=== PATIENT | female | born 1955 | race Caucasian/White ===

== ENCOUNTER 2024-08-20 15:30 | Emergency (ER) | payer MEDICARE, OTHER, SELFPAY ==
[2024-08-20 15:30] VITALS: BMI 24.4
[2024-08-20 15:32] VITALS: BP 170/105
[2024-08-20 16:00] VITALS: BP 141/87
[2024-08-20 16:08] LABS: % Basophils 0.5 % (0-2); % Eosinophils 0.6 % (0-6); % Immature Granulocytes 0.4 % (0-0.5); % Neutrophils 92.5 % (42.2-75.2); Absolute Eosinophils 0.1 10^3/uL (0-0.7); Absolute Lymphocytes 0.3 10^3/uL (1.2-3.4); Absolute Monocytes 0.3 10^3/uL (0.1-0.6); Absolute Neutrophils 7.8 10^3/uL (1.4-6.5); Hematocrit 42.8 % (37.0-47.0); Hemoglobin 14.5 g/dL (12.0-16.0); Mean Corp Hgb Conc. 33.9 g/dL (33.0-37.0); Mean Corpuscular Hgb 31.8 pg (27.0-31.0); Mean Corpuscular Volume 93.9 fL (81.0-99.0); Mean Platelet Volume 9.9 fL (7.4-10.4); Nucleated Red Blood Cells % 0 %; Platelet Count 192 10^3/uL (130-400); Red Blood Cell Count 4.56 10^6/uL (4.20-5.40); Red Cell Dist. Width 13.3 % (11.5-14.5); White Blood Cell Count 8.5 10^3/uL (4.8-10.8)
[2024-08-20 16:10] LABS: Lactic Acid 1.5 mmol/L (0.7-2.0)
[2024-08-20 16:12] LABS: ALT (SGPT) 33 U/L (0-35); AST (SGOT) 46 U/L (14-36); Albumin 4.8 g/dl (3.5-5.0); Alkaline Phosphatase 70 U/L (38-126); Blood Urea Nitrogen 13 mg/dl (7-17); Carbon Dioxide 25 mmol/L (22-30); Chloride 103 mmol/L (98-107); Glucose 110 mg/dl (70-99); Potassium 4.4 mmol/L (3.5-5.1); Sodium 141 mmol/L (135-145); Total Bilirubin 1.3 mg/dl (0.2-1.3); Total Protein 7.1 g/dl (6.3-8.2); eGFR > 60.00
[2024-08-20 16:19] LABS: Urine Albumin Negative (Neg - Trace); Urine Bilirubin 1+ (Negative); Urine Character Clear (Clear); Urine Color Yellow; Urine Glucose Negative (Negative); Urine Ketone Negative (Negative); Urine Leukocyte Negative (Negative); Urine Nitrite Positive (Negative); Urine Occult Blood Negative (Negative); Urine Specific Gravity 1.025 (<1.030); Urine Urobilinogen 1+ (Neg - 1+)
[2024-08-20 16:50] LABS: Urine Bacteria Few (Negative); Urine Calcium Oxalate Crystals Present; Urine Red Blood Cell 0-2 /HPF (0-2); Urine Squamous Cell 21-25 /LPF (Few)
[2024-08-20 16:57] VITALS: BP 141/87
[2024-08-20 18:00] VITALS: BP 127/81
--- NOTE | 2024-08-20 18:14 | ED.GENMED ---
History of Present Illness
General
Chief Complaint: Urinary Symptoms
Source: patient
Exam Limitations: none
Time Seen by Provider: 08/20/24 17:04
Nursing documentation reviewed up to this point in time: agreed with
History of Present Illness
History of Present Illness:
69 yo female presents to the emergency department c/o flank pain, bladder fullness and groin fullness. Symptoms ongoing for 1-1/2 to 2 weeks. Initially she was on Keflex for dental infection, then clindamycin which gave her diarrhea. She then
developed a urinary tract and was given ciprofloxacin by urgent care.
Past History
Past History
ED Past Medical History: HTN and Other (Migraines, Lyme disease, endometriosis)
ED Past Surgical History: Gynecological (Endometriosis) and Other
Social History
Tobacco: Non-smoker
Alcohol: None
Drug: None
Review of Systems
Review of Systems
Allergies reviewed?: Yes
All Other Systems: Not applicable
Constitutional: Reports no symptoms
EENT: Reports no symptoms
Respiratory: Reports no symptoms
Cardiac: Reports no symptoms
ABD/GI: Reports diarrhea
: Reports flank pain and urgency
Musculoskeletal: Reports no symptoms
Skin: Reports no symptoms
Neurological: Reports no symptoms
Endocrine: Reports no symptoms
Hematologic/Lymphatic: Reports no symptoms
Psychiatric: Reports no symptoms
Phy Exam
Physical Exam
Physical Exam:
Physical Exam
General: no apparent distress, not acutely ill
Neck: supple. no meningeal signs. normal posterior pharynx
Heart: s1/s2 regular rate and rhythm, no murmur. equal radial
pulses.
HEENT: Pupils equal round reactive to light, EOMI
Lungs: no acute respiratory distress. clear bilaterally
Abdomen: normal bowel sounds. not tender. no CVAT
Neuro: alert and oriented. no focal neurological deficits cranial nerves II through XII intact
Skin: no rash
Psychiatric: well kept. interactive and cooperative
Extremities: no edema. no calf tenderness. negative homans. good distal pulses
Course
Orders/Labs/Results
Orders:
Orders
08/20/24 15:48
Complete Blood Count/With Diff Urgent
Comprehensive Metabolic Panel Urgent
Lactate Level [Lactic Acid] Urgent
Urinalysis Reflex To Culture Urgent
Date Specimen was Collected: 08/20/24
Time Specimen was Collected: 15:36
Urine Microscopic Reflex Cult Urgent
Urine Culture Urgent
JOSE A Source: U
Specimen Description:
Date Specimen was Collected: 08/20/24
Time Specimen was Collected: 15:36
08/20/24 18:12
CT Abd/pel Without Iv Or Oral Urgent
Comment:
Reason For Exam: bilateral flank pain, UTI
08/20/24 20:24
CefTRIAXone [Rocephin] 1,000 mg IV NOW STA
08/20/24 20:27
Acetaminophen [Tylenol] 650 mg PO NOW STA
Abnormal Lab Results
08/20/24
15:48
MCH 31.8 H pg
(27.0-31.0)
Absolute Neuts (auto) 7.8 H 10^3/uL
(1.4-6.5)
Absolute Lymphs (auto) 0.3 L 10^3/uL
(1.2-3.4)
Neutrophils % 92.5 H %
(42.2-75.2)
Lymphocytes % 3.0 L %
(20.5-51.1)
Glucose 110 H mg/dl
(70-99)
Calcium 11.0 H mg/dl
(8.4-10.2)
AST 46 H U/L
(14-36)
Urine Nitrite (Reflex) Positive A
(Negative)
Urine Bilirubin 1+ A
(Negative)
Urine Bacteria (Reflex) Few A
(Negative)
08/20/24 15:48
08/20/24 15:48
Vital Signs
Initial and Last Documented VS:
Initial Vital Signs
Temp Pulse Resp BP Pulse Ox
100.9 F H 75 18 170/105 93
08/20/24 15:32 08/20/24 15:32 08/20/24 15:32 08/20/24 15:32 08/20/24 15:32
Last Documented Vital Signs
Temp Pulse Resp BP Pulse Ox
100.9 F H 57 18 122/79 97
08/20/24 15:32 08/20/24 19:52 08/20/24 19:52 08/20/24 19:52 08/20/24 19:52
MDM/Problems Addressed
Differential Diagnosis Includes:
Pyelonephritis, kidney stone
MDM/Problems Addressed:
69-year-old female with UTI, mild fever. No acute findings on CT abdomen pelvis. Patient stable for discharge. She with Rocephin, Keflex.
Chronic conditions affecting care: HTN
Acute Exacerbation and/or Progression of Chronic Illness: HTN
*Radiology
Radiology exam reviewed: radiology read reviewed (CT abdomen pelvis no acute findings)
*Pulse Oximetry
Patient hypoxic: no
*Critical Care Note
Total Time (30-74mins, 75-104mins- exclusive of procedures): Not Applicable
Patient Management
Social determinants of health affecting care: Living situation and Strong social support
Escalation/DeEscalation of care consider admission/obs:
Admit not indicated
ED Attending Note
-
Portions of this chart may have been created with voice recognition software.� Occasional wrong word or��sound alike� substitutions may have occurred due to the inherent limitations of voice recognition software.
Discharge Plan
Departure
Patient Disposition: Home (Routine Discharge)
Date of Disposition: 08/20/24
Time of Disposition: 20:25
Patient with high blood pressure during this ER visit?: Yes
Condition: Good
Discharge Problem:
Urinary tract infection
Instructions: Urinary Tract Infection, Adult (DC), BLOOD PRESSURE
Prescriptions:
New
cephalexin 500 mg capsule
500 mg PO BID 10 Days Qty: 20 0RF
Referrals:
Hanh Alexander DO [Active] - Call in 1-3 days for appt
Wero Osborn DO [Family Provider] - Call in 1-3 days for appt
Interventions
Interventions:
*Risk Screen - Suicide Last Done: 08/20/24 15:32
*General Assessment Last Done: 08/20/24 15:32
*Neglect/Abuse Screening Last Done: 08/20/24 15:32
*ED COVID-19 Vaccine History Last Done: 08/20/24 15:32
ED-Female Genitourinary Assessment Last Done: 08/20/24 19:10
ED-Skin Assessment Last Done: 08/20/24 19:10
Discharge Date and Time
Print Language: [place]
[2024-08-20 19:52] VITALS: BP 122/79
[2024-08-20] MEDS: ROCEPHIN 1000 MG IV (20:32)
== END 2024-08-20 21:20 | disposition home or self-care (01) ==
LOC: EMR 15:30
PROVIDERS: EMERGENCY PHYSICIAN Emergency Medicine; FAMILY PHYSICIAN Family Medicine
DX: N39.0 Urinary tract infection, site not specified (principal); R19.7 Diarrhea, unspecified; R10.2 Pelvic and perineal pain; I10 Essential (primary) hypertension; G43.909 Migraine, unspecified, not intractable, without status migrainosus; N80.9 Endometriosis, unspecified; Z88.0 Allergy status to penicillin
CPT/HCPCS: 99284; 96374; 74176; 80053; 81003; 81015; 83605; 85025; 87086

== ENCOUNTER 2025-05-14 18:08 | Inpatient (IN) | payer MEDICARE, OTHER, SELFPAY ==
[2025-05-14] VITALS (24 sets, daily range): BP systolic 102–147; BP diastolic 82–111; BMI 23.6; BMI 22.1
[2025-05-14 13:40] LABS: % Basophils 1.2 % (0-2); % Eosinophils 0.9 % (0-6); % Immature Granulocytes 0.3 % (0-0.5); % Lymphocytes 16.4 % (20.5-51.1); % Monocytes 10.3 % (1.7-9.3); % Neutrophils 70.9 % (42.2-75.2); Absolute Basophils 0.1 10^3/uL (0-0.2); Absolute Eosinophils 0.1 10^3/uL (0-0.7); Absolute Monocytes 0.6 10^3/uL (0.1-0.6); Absolute Neutrophils 4.1 10^3/uL (1.4-6.5); Hematocrit 45.2 % (37.0-47.0); Hemoglobin 15.3 g/dL (12.0-16.0); Mean Corp Hgb Conc. 33.8 g/dL (33.0-37.0); Mean Corpuscular Hgb 31.2 pg (27.0-31.0); Mean Corpuscular Volume 92.2 fL (81.0-99.0); Nucleated Red Blood Cells % 0 %; Platelet Count 198 10^3/uL (130-400); Red Cell Dist. Width 12.9 % (11.5-14.5); White Blood Cell Count 5.8 10^3/uL (4.8-10.8)
[2025-05-14 13:54] LABS: ALT (SGPT) 15 U/L (0-35); AST (SGOT) 18 U/L (14-36); Albumin 4.8 g/dl (3.5-5.0); Alkaline Phosphatase 65 U/L (38-126); Blood Urea Nitrogen 14 mg/dl (7-17); Calcium 11.4 mg/dl (8.4-10.2); Carbon Dioxide 27 mmol/L (22-30); Chloride 107 mmol/L (98-107); Glucose 103 mg/dl (70-99); Potassium 4.5 mmol/L (3.5-5.1); Sodium 141 mmol/L (135-145); Total Bilirubin 1.2 mg/dl (0.2-1.3); Total Protein 7.5 g/dl (6.3-8.2); eGFR > 60.00
[2025-05-14 13:58] LABS: APTT 29.8 Sec (23.4-35.0)
[2025-05-14 14:56] LABS: Magnesium 1.9 mg/dl (1.6-2.3)
--- NOTE | 2025-05-14 15:16 | ED.GENMED ---
History of Present Illness
General
Chief Complaint: Heart Rate Problem
Source: patient
Time Seen by Provider: 05/14/25 14:18
Nursing documentation reviewed up to this point in time: agreed with
History of Present Illness
History of Present Illness:
Note:
CHIEF COMPLAINT(S)
Sore throat and abnormal heart rhythm.
HISTORY OF PRESENT ILLNESS
The patient is a 71-year-old male presenting with a recent history of a sore throat and an abnormal heart rhythm. The patient reported a sore throat with a white patch on the tonsil, ear pain, swollen glands, and sinus discomfort. Due to these
symptoms, the patient visited a primary care provider who, upon examination, performed an EKG showing atrial fibrillation/flutter and advised immediate hospital evaluation. The patient denies fever but reports a new onset cough for two days. The
patient mentions chronic cough inaccurately. The patient denies chest pain. The patient has a history of hypertension, currently managed with bisoprolol. The patient consumes alcohol occasionally.
PHYSICAL EXAM
- Nursing notes reviewed and vital signs reviewed: Afebrile, blood pressure 147/111, oxygen saturation 97% on room air.
- Head, Eyes, Ears, Nose, and Throat: Normocephalic, atraumatic, pupils equal, round, and reactive to light, no tonsillar edema or enlargement, tongue midline, moist oral mucosa, extraocular muscles intact.
- Cardiovascular: S1 and S2 normal, no S4, no murmurs, tachycardia, irregularly irregular rhythm.
- Pulmonary: Lungs clear bilaterally, no respiratory distress.
- Abdomen: Soft, non-distended, no rebound tenderness or guarding.
- Extremities: No edema, normal peripheral pulses.
- Neurologic: Cranial nerves II-XII intact.
PLAN
The plan includes starting the patient on diltiazem to slow the heart rate and potentially restore the regular rhythm. The patient will also be started on a blood thinner to prevent thromboembolic events associated with atrial fibrillation. Further
evaluation by cardiology is advised, including overnight hospitalization for monitoring and potentially an echocardiogram to assess for any cardiac thrombus. A chest X-ray will be performed to assess heart size and lung duran. COVID-19 and
influenza testing will be conducted to rule out concurrent infections.
DIFFERENTIAL DIAGNOSIS
The Differential Diagnosis includes, in no particular order and is not limited to:
1. Atrial fibrillation
2. Infective endocarditis
3. Upper respiratory tract infection
4. Viral pharyngitis
5. Streptococcal pharyngitis
6. Tonsillitis
7. Sinusitis
8. Oral candidiasis
9. Pulmonary embolism
10. Heart failure
EKG
My independent EKG interpretation is:
- Heart rate: 128 bpm
- Rhythm: Atrial flutter
- Block: Variable AV block
- [place]: Left axis deviation
- Intervals: Normal QRS duration and normal QT interval
- Abnormalities: Nonspecific ST and T wave abnormalities
CARE-UPDATE
05/14/25 - 17:11
Patient is tolerating diltiazem well, with improved heart rate control. Plan to admit for continued rate management and consider transesophageal echocardiogram (JOSE) and potential cardioversion. IV heparin therapy has been ordered to prevent
thromboembolic complications.
Disposition:
SUMMARY OF ENCOUNTER
The patient, a 71-year-old male, was seen in the emergency department due to a recent history of a sore throat and an abnormal heart rhythm identified as atrial flutter with variable AV block on EKG. The decision was made to admit the patient for
overnight monitoring and rate management, using an IV diltiazem drip to slow the heart rate and a heparin drip to prevent thromboembolic complications.
DISPOSITION
The patient was admitted for continued monitoring and management of atrial fibrillation.
MEDICATION RECONCILIATION
The patient was started on an IV diltiazem drip for heart rate control and heparin drip for thromboembolic prevention.
MEDICAL DECISION MAKING
1. Number & Complexity of Problems:
- Chronic conditions affecting care: Hypertension.
- Differential diagnoses considered include atrial fibrillation and viral or bacterial infections manifesting as a sore throat.
2. Data Reviewed:
- Ordered and reviewed EKG.
- Plan for further cardiology evaluation with potential echocardiogram.
3. Risk:
- Admission considered due to arrhythmia and potential risk of thromboembolic events.
- Management involves medication adjustments and close monitoring.
PATHOLOGIES TO CONSIDER
- Atrial fibrillation with risk of thromboembolic events.
- Infective endocarditis due to sore throat and arrhythmia.
- Pulmonary embolism due to dyspnea and arrhythmia.
Past History
Past History
ED Past Medical History: HTN and Other (Migraines, Lyme disease, endometriosis)
ED Past Surgical History: Gynecological (Endometriosis) and Other
Social History
Tobacco: Non-smoker
Alcohol: None
Drug: None
Phy Exam
Physical Exam
Physical Exam:
.
Course
Orders/Labs/Results
Orders:
Orders
05/14/25 13:13
Electrocardiogram (*1) Urgent
Reason for Study: Atrial Fibrillation
EKG- Treatment ONCE
05/14/25 13:31
Complete Blood Count/With Diff Urgent
Comprehensive Metabolic Panel Urgent
Magnesium Urgent
PTT Urgent
TSH Urgent
Comment: ADD ON
05/14/25 14:18
Add On- LAB Urgent
Tests Added?: mag/tsh
Troponin I Urgent
05/14/25 15:13
Diltiazem 125 mg/125 ml Nss [Cardizem] 125 mg in 125 ml IV NOW
Initial dose in mg/hr, then titrate:: 5
Titrate to keep:: Heart rate 80-100 bpm
Titrate by mg/hr:: 5 mg/hr
Frequency of titrations (minutes):: 15
Maximum dose in mg/hr:: 15
Diltiazem HCl [Cardizem] 5 mg IV NOW STA
05/14/25 15:15
CR Chest - 2 Views Urgent
Comment:
Reason For Exam: cough
05/14/25 17:06
PTT Urgent
Comment: Obtain baseline before beginning heparin infusion if not already collected
Heparin 3,500 units IV NOW STA
Pharmacy Request to Place See Dose Instructions PO NOW STA
Discontinue all Active Warfarin orders?: Yes
Nursing to Place Non Medication Order As Directed
Physician Order: PTT 6 hours after initial start of Heparin infusion
05/14/25 17:15
Heparin [id number] Units/250 ml 25,000 units in 250 ml IV PER PROTOCOL
Weight to be used for heparin protocol in kilograms (kg):: 58.5
Protocol:: Cardiac Tx/Acute Coronary
PTT Goal Range to be used:: PTT 73 to 111 seconds
Order type:: Initial
INITIAL Infusion Dose (UNITS/KG/hr) & then follow protocol:: 12 units/kg/hr
Infusion Dose in UNITS/hr & then follow protocol (UNITS/hr):: 700
INFUSION RATE in mL/hr & then follow protocol (mL/hr):: 7
PTT less than or equal to 64 seconds:: Increase rate by 200 units/hr (+ 2 mL/hr)
PTT 64.1 to 72.9 seconds:: Increase rate by 100 units/hr (+ 1 mL/hr)
PTT 73 to 111 seconds:: Target Range. No change in rate.
PTT 111.1 to 130.9 seconds:: Decrease rate by 100 units/hr (- 1 mL/hr)
PTT 131 to 199.9 seconds:: HOLD for 1 hr. Then decrease rate by 200 units/hr (- 2 mL/hr)
PTT greater than or equal to 200 seconds:: HOLD for 2 hrs & Notify Provider. Then decrease by 200 units/hr (-
2 mL/hr)
Lab follow-up:: Each change, PTT q6h until 2 consecutive are therapeutic. Then PTT
daily.
05/14/25 18:[address] See Dose Instructions IV DIRECTED
Abnormal Lab Results
05/14/25
13:31
MCH 31.2 H pg
(27.0-31.0)
Absolute Lymphs (auto) 1.0 L 10^3/uL
(1.2-3.4)
Lymphocytes % 16.4 L %
(20.5-51.1)
Monocytes % 10.3 H %
(1.7-9.3)
Glucose 103 H mg/dl
(70-99)
Calcium 11.4 H mg/dl
(8.4-10.2)
05/14/25 13:31
05/14/25 13:31
Vital Signs
Initial and Last Documented VS:
Initial Vital Signs
Temp Pulse Resp BP Pulse Ox
99.5 F 125 16 147/111 97
05/14/25 13:21 05/14/25 13:21 05/14/25 13:21 05/14/25 13:21 05/14/25 13:21
Last Documented Vital Signs
Temp Pulse Resp BP Pulse Ox
99.5 F 110 25 135/105 96
05/14/25 13:21 05/14/25 16:15 05/14/25 16:15 05/14/25 16:15 05/14/25 16:15
*Pulse Oximetry
SaO2: 97
Oxygen Mode of Delivery: Room air
Patient hypoxic: no
*Critical Care Note
Total Time (30-74mins, 75-104mins- exclusive of procedures): 35
comment:
Critical care statement: A total of 35 minutes of critical care time was provided for this patient. This includes management of unstable vital signs, evaluation of the patient at bedside, reviewing the patient's pertinent medical records, discussion
with consultants, review of old EKGs and review of pertinent medical records. This time with separate from time utilized to perform the aforementioned documented procedures
ED Attending Note
-
Portions of this chart may have been created with voice recognition software.� Occasional wrong word or��sound alike� substitutions may have occurred due to the inherent limitations of voice recognition software.
Discharge Plan
Departure
Patient Disposition: Admit
Date of Disposition: 05/14/25
Time of Disposition: 17:08
Admit to: IVU
Presentation/result/management discussed w/ accepting MD/DO: Hospitalist
Patient with high blood pressure during this ER visit?: Yes
Condition: Fair
Discharge Problem:
Atrial fibrillation with rapid ventricular response
Prescriptions:
No Action
zolmitriptan 5 mg Tablet,Disintegrating
0 mg PO .COMPLEX
Rx Instructions:
take 1 tab at onset of headache; if no relief, may repeat 1 tab after at least 2 hrs; max = 2 tabs/24 hrs
nebivolol 2.5 mg Tablet
2.5 mg PO DAILY
Referrals:
Wero Osborn DO [Family Provider, Family Practice]
Interventions
Interventions:
*Risk Screen - Suicide Last Done: 05/14/25 13:56
*General Assessment Last Done: 05/14/25 13:56
*Neglect/Abuse Screening Last Done: 05/14/25 13:56
*ED- Fall Risk Assessment Last Done: 05/14/25 13:56
*ED COVID-19 Vaccine History Last Done: 05/14/25 13:56
ED- Cardiac Assessment Last Done: 05/14/25 13:56
ED- Pulmonary Assessment Last Done: 05/14/25 13:56
Discharge Date and Time
Print Language: [place]
[2025-05-14] MEDS: CARDIZEM 125 IV (15:32)
[2025-05-14] MEDS: CARDIZEM 5 MG IV (15:33)
[2025-05-14 15:55] LABS: TSH 0.79 uIU/ml (0.47-4.68)
--- NOTE | 2025-05-14 17:09 | HPS.HSE ---
Family Physician
-
Family Physician: Wero Osborn
Chief Complaint
-
palpitations
History of Present Illness
Ms. Whit Islas is a 70 yo woman with hx essential hypertension, migraines sent to PCP office for new afib.
Patient went to her PCP for complaint of sore throat and left face fullness that reminded her of prior sinus infections. Symptoms started 2 days ago. No fevers.
PCP found patient to be tachycardic with EKG showing afib. She was sent to the ER. Patient denies palpitations. No prior history of afib. No nausea/vomiting. No diarrhea. Appetite OK. No chest pain. No LE swelling.
Medical History
Past Medical History
Past Medical History: Reports Other (Essential Hypertension, Migraines )
Past Surgical History: Reports Other
Social History
Tobacco: Non-smoker
Alcohol: Occasional
Family History
Family History: Not pertinent
Allergies / Home Medications
Allergies reflects when Allergies were last updated in [facility].
Home Medications with original date entered in [facility]
Allergy/Medication List:
Allergies
Allergy/AdvReac Type Severity Reaction Status Date / Time
penicillin V (From Pen-Vee K) Allergy Unknown Verified 11/23/20 18:01
Home Medications
nebivolol 2.5 mg tablet 2.5 mg PO DAILY 05/14/25
zolmitriptan 5 mg disintegrating tablet 0 mg PO .COMPLEX 05/14/25
Review of Systems
-
History Source: Patient
A 12 point ROS was completed and negative except as noted: Yes
Physical Exam
Vital Signs
Vital Signs
Temp Pulse Resp BP Pulse Ox
99.5 F 110 25 135/105 96
05/14/25 13:21 05/14/25 16:15 05/14/25 16:15 05/14/25 16:15 05/14/25 16:15
Physical Exam
General: No Apparent Distress
HEENT: PERRLA and Other (throat erythematous without exudate, no significant lymphadenopathy, no maxillary sinus pressure )
Respiratory: Clear; No Wheezes
Cardiac: S1/S2 and Irregular Rhythm
GI: Soft and Non Tender
Musculoskeletal: No Edema
Skin: Warm and Dry; No Rash
Neuro: AO x 3
Psych: Calm
Laboratory Results
-
05/14/25 13:31
05/14/25 13:31
Laboratory Results
APTT 29.8 Sec (23.4-35.0) 05/14/25 13:31
Total Bilirubin 1.2 mg/dl (0.2-1.3) 05/14/25 13:31
AST 18 U/L (14-36) 05/14/25 13:31
ALT 15 U/L (0-35) 05/14/25 13:31
Alkaline Phosphatase 65 U/L (38-126) 05/14/25 13:31
Data Reviewed
-
Diagnostic Radiology: Report Reviewed by me
Lab Data: Labs Reviewed by me
Impression/Plan
-
Ms. Whit Islas is a 70 yo woman with hx essential hypertension, migraines sent to PCP office for new afib.
Triage VS: T 99.5, P 125, RR 16, BP 147/111, SpO2 97%
LABS: WBC 5.8, Hg 15.3, PLT 198, Na 141, K+ 4.5, Cl 107, CO2 27, Cr 0.7, Glucose 103, Ca 11.4, Mag 1.9, liver enzymes WNL
TSH 0.79
EKG: aflutter @ 128
Atrial Flutter, new diagnosis
-started on IV diltiazem in the ER
-admit to IVU
-CHADS2-Vasc score = 3
-patient initially very hesitant to start a blood thinner and we discussed risks and benefits. She is willing to start Eliquis now and understands even higher importance in taking if cardioversion pursued
-Eliquis 5mg PO BID, CM consult placed
-Cardiology consult
-NPO after MN for possible JOSE cardioversion
-TTE
-TSH WNL
URI likely viral
-patient states covid tested today and negative, will check flu
-hold off on antibiotics for now
-IVF x 1 L
Essential HTN
-CRYSTAL MOUNTER Nebivolol
DVT PPx Eliquis
DNR - discussed on admission
76 minutes spent on patient care
[2025-05-14 17:43] LABS: Troponin I 0.019 ng/ml
[2025-05-14] MEDS: ELIQUIS 5 MG PO (18:22)
[2025-05-14] MEDS: ANESTHETIC LOZENGE 1 LOZENGE PO (18:22)
[2025-05-14] MEDS: TESSALON PERLES 100 MG PO ×2 (18:22→22:57)
[2025-05-14] MEDS: MUCINEX 600 MG PO (20:57)
[2025-05-14] MEDS: NSS 1000 IV (20:57)
--- NOTE | 2025-05-14 23:14 | PTCARENOTE ---
received patient from ED via stretcher. Patient walked from stretcher to bed without issue. Patient in Afib on Cardizem gtt at 5. IV fluids running as well 100ml/hr. Patient did complain of pain at IV site, this RN assessed site, flushed great and
no infiltration. IV team called to assess site as well, site was redressed and patient said it felt better. Assessment and vital signs as charted. call de la cruz in reach.
[2025-05-15] VITALS (7 sets, daily range): BP systolic 101–141; BP diastolic 71–111; BMI 22.2
--- NOTE | 2025-05-15 03:32 | PTCARENOTE ---
patient refused morning lab work. Patient stating 'it is not necessary'.
[2025-05-15] MEDS: IMITREX 100 MG PO (03:36)
[2025-05-15] MEDS: MUCINEX 600 MG PO (08:12)
[2025-05-15] MEDS: ELIQUIS 5 MG PO (08:12)
[2025-05-15] MEDS: BYSTOLIC 2.5 MG PO (08:12)
--- NOTE | 2025-05-15 08:25 | CON.CAR ---
Addendum entered and electronically signed by Chon José MD 05/15/25 11:25:
I saw and examined the patient.
The Parlor Chaperone's note was reviewed and I agree with the note.
Comment: Briefly, 70-year-old woman who presented to her primary care physician's office for evaluation of URI symptoms and was found to have rapid heart rate. ECG there showed rapid atrial flutter and she was referred to [place] emergency
department for evaluation.
Tells me that she has been asymptomatic despite rapid HR
Remains in atrial flutter this morning. With diltiazem drip heart rates are much better controlled.
We discussed rate versus rhythm strategy and she prefers conservative approach
Plan to continue home Nebivolol. Add low-dose PO Cardizem for goal heart rate less than 110 bpm.
Reviewed that if she remains in atrial flutter at the time of outpatient follow-up we can arrange for direct-current cardioversion at that time.
CHADS2 Vasc of 3 for hypertension, age and sex -recommend Eliquis 5 mg twice daily for risk reduction of cardioembolic stroke
Check echo to evaluate for cardiomyopathy or significant valvular pathology
Tentative plan for discharge later today
Addendum entered and electronically signed by Dilcia Nash PA-C 05/15/25 10:53:
Patient refused labs this morning, I called the lab and able to add on the HgbA1c to her ER labs from yesterday. Patient is anxious for discharge and is asking for her echo as soon as possible so that she can go home.
Original Note:
Consultation
Consultation Request
Date/Time Consultation Requested: 05/14/2025 in 2023
Date/Time Consultation Performed: 05/15/2025 at 0856
Requesting Provider: Dr. Rollins
Performing Provider: Dr. José
Reason for Consultation: Newly diagnosed atrial flutter
Medical History
-
History of Present Illness:
Patient came to [facility] ER last night with atrial flutter seen at her PCP office and cardiology was consulted. Patient was seen in her PCP for URI symptoms including congestion and throat pain, but was not feeling like SOB and no palpitations or CP.
On auscultation at the PCP office patient was noted to have a rapid and irregular HR prompting ECG that showed atrial flutter and patient was referred to the ER. Patient denies any history of atrial arrhythmia. ECG in the ER was repeated and
showed atrial flutter. Patient was started on Eliquis and a Cardizem gtt at 5 mg/hr. Patient denies palpitations. No recent decrease in exercise tolerance. She drinks 2-3 nights a week and has 3 glasses of wine when she drinks. She does not snore.
PMH:
HTN
h/o endometriosis
Past Medical History
Past Medical History: Other (in HPI)
Past Surgical History: Gynecological (endometriosis surgery, details unknown)
Social History
Tobacco: Non-Smoker
Alcohol: Other (threee glasses of wine 2-3 times a week)
Drug: None
Personal: Partner
Employment: Not Employed
Family History
Family History: Cancer
Allergies / Home Medications
Allergy/AdvReac Type Severity Reaction Status Date / Time
penicillin V (From Pen-Vee K) Allergy Unknown Verified 11/23/20 18:01
�Medication �Instructions �Recorded �Confirmed �Type
nebivolol 2.5 mg tablet 2.5 mg PO DAILY Blood Pressure 05/14/25 05/14/25 History
zolmitriptan 5 mg disintegrating 0 mg PO .COMPLEX migraine 05/14/25 05/14/25 History
tablet
Review of Systems
-
History Source: Patient and Family (partner at bedside)
All other systems: Negative unless noted
Physical Exam
Vital Signs
Temp Pulse Resp BP Pulse Ox
98.5 F 87 17 112/78 94
05/15/25 07:44 05/15/25 03:00 05/15/25 03:00 05/15/25 02:00 05/15/25 03:00
GEN: NAD. AAOx3
HEENT: EOMI, MMM
LUNGS: RA. CTA B/L, no wheeze
CV: Atrial flutter on tele. Irreg irreg, S1/S2, no murmur
ABD: soft, BS+, NT, ND
EXT: No clubbing, cyanosis, lesions or edema B/L
NEURO: Gross non-focal
SKIN: No rash
Lab Results
Troponin I 0.019 ng/ml 05/14/25 17:08
Impression / Plan
-
PCP: Dr. Osborn
Card: None prior to admission
Impression:
Admitted with newly diagnosed atrial flutter 05/14/2025
Newly diagnosed typical atrial flutter of unclear duration
HTN
h/o endometriosis
Hyperglycemia
Echo 05/15/25: Study pending
Plan:
-Patient came to [facility] ER last night with atrial flutter seen at her PCP office and cardiology was consulted. Patient was seen in her PCP for URI symptoms including congestion and throat pain, but was not feeling like SOB and no palpitations or CP.
On auscultation at the PCP office patient was noted to have a rapid and irregular HR prompting ECG that showed atrial flutter and patient was referred to the ER. Patient denies any history of atrial arrhythmia. ECG in the ER was repeated and
showed atrial flutter. Patient was started on Eliquis and a Cardizem gtt at 5 mg/hr. Patient denies palpitations. No recent decrease in exercise tolerance. She drinks 2-3 nights a week and has 3 glasses of wine when she drinks. She does not snore.
-ECG reviewed by me is atrial flutter, shuttlecock assembler reviewed by me. Also looks like atrial flutter
-Patient with newly diagnosed asymptomatic typical atrial flutter of unclear duration. Reviewed with patient and her partner at the bedside the pathophysiology of atrial arrhythmias. We also discussed rate control versus rhythm control. Patient
is not interested in JOSE/CV after our discussion and would prefer rate control and the possibility of cardioversion as an outpatient if she fails to convert on her own.
-Outpatient dose of Nebivolol 2.5 mg daily for history of HTN has been continued. Patient is also on Cardizem gtt running at 10 mg/hr. will transition to Cardizem CD 120 mg daily, orders placed by me.
-Patient was started on Eliquis 5 mg BID (age 70, Cre 0.7) last night. [id number] score is 3 and long-term OAC has been recommended. Patient is agreeable to OAC, but has no prescription drug coverage. Patient will use the 30-day free Eliquis
coupon card and in the meantime I have sent a task through [employer] to the cardiology office to work on patient prescription assistance paperwork. Reviewed with patient that if she does not qualify for patient prescription assistance that the
alternative would be warfarin which she says she would not do, but also cannot afford the [id number] cost for Eliquis.
-We discussed possible long-term rhythm control measures including AAD or ablation, but we discussed this in broad terms and patient is not immediately interested as she is otherwise asymptomatic.
-Patient denies snoring, partner confirms. BMI is 22. Would still consider outpatient PERLA evaluation.
-Advised patient to decrease alcohol intake, she drinks 3 glasses of wine 2-3 nights a week.
-Hyperglycemia noted since admission, will check HgbA1c, ordered by me.
-TSH normal at 0.79
-Echo ordered and report pending
-Pending echo patient can be discharged to home with outpatient cardiology follow-up.
--- NOTE | 2025-05-15 08:31 | W.CHA2DS2VAS ---
[id number] Score
Score
Age in Years (65=0, 65-74=1, >/=75=2): 65-74
Sex (Female=+1): Female
Congestive Heart Failure History (Yes=+1): No
Hypertension History (Yes=+1): Yes
Stroke/TIA/Thromboembolism History (Yes=+2): No
Vascular Disease History (Yes=+1): No
Diabetes Mellitus (Yes=+1): No
Score >/=2 is otherwise an anticoagulation candidate: 3
[2025-05-15] MEDS: CARDIZEM CD 120 MG PO (10:46)
--- NOTE | 2025-05-15 13:38 | CM ---
Patient with Dx new Atrial Flutter, URI likely viral. Plan echo today. Room air. Per nurse; A/O.
Met with patient who resides with her SO Matt in a 2 story house with 6 ADIA, with bedrooms on both first & 2nd floors.
The patient was independent in ADLs and ambulation.
She has no DME, no prior VN or SNF.
PCP - Wero Osborn
Pharmacy - [facility]
CM Consult:
Foss check Eliquis 5mg BID
Spoke with pharmacist, [facility]; patient has no prescription plan with her Medicare/no Part D, and cost is $503.70 with discount card that they can supply. Per pharmacy, Free Month Eliquis card will not work without insurance.
Provided info to patient of cost with discount card at pharmacy. Patient aware that cardiology office is working on patient assistance program for her Eliquis.
Confirmed with Dilcia Nash, cardiology office is working on patient prescription assistance paperwork for Eliquis.
Plan home.
--- NOTE | 2025-05-15 15:34 | W.PN.UPDATE ---
Update Note
Progress Note Update
Updated patient in her room with the results of echo. We reviewed plan for outpatient visit and ECG and that if she remains in A-fib can proceed with straight cardioversion in 3 weeks. We again reviewed using the 30-day free card for her initial
Eliquis prescription and that in the meantime the cardiology office is working on patient prescription assistance paperwork. I already E scribed the prescriptions for Cardizem CD and Eliquis to patient's pharmacy and made cardiology follow-up
visits and all of this was added to her discharge packet.
--- NOTE | 2025-05-15 16:13 | W.PN.HOSP.TC ---
Addendum entered and electronically signed by Raul Rollins MD 05/15/25 16:30:
call placed and discussed with Dr. Pratt, he feels that pt is in Atrial Flutter and not A. Fib
Original Note:
Today's Communication/Plan
-
dc to home
Assessment / Plan
Assessment / Plan
Ms. Whit Islas is a 70 yo woman with hx essential hypertension, migraines sent from PCP office for new afib.
Triage VS: T 99.5, P 125, RR 16, BP 147/111, SpO2 97%
LABS: WBC 5.8, Hg 15.3, PLT 198, Na 141, K+ 4.5, Cl 107, CO2 27, Cr 0.7, Glucose 103, Ca 11.4, Mag 1.9, liver enzymes WNL
TSH 0.79
EKG: aflutter @ 128
Atrial Flutter, new diagnosis
-started on IV diltiazem in the ER
has been changed over to oral diltiazem
-admit to IVU
-CHADS2-Vasc score = 3
-patient initially very hesitant to start a blood thinner and we discussed risks and benefits. She is willing to start Eliquis now and understands even higher importance in taking if cardioversion pursued
-Eliquis 5mg PO BID, CM consult placed
-Cardiology consult:
Echo: Normal left ventricular size. Low normal left ventricular systolic function. No
regional wall motion abnormalities are seen. LV ejection fraction is 50% by
visual estimate. Mild concentric left ventricular hypertrophy. Diastolic
function indeterminate due to atrial fibrillation.
Normal right ventricular size. Normal right ventricular systolic function.
Mild to moderate mitral regurgitation.
Mild to moderate aortic regurgitation.
Moderate tricuspid regurgitation. Estimated pulmonary artery pressure of 20-25
mmHg. Assuming a right atrial pressure of 3 mmHg.
-TSH WNL
URI likely viral
-patient states covid tested today and negative, neg flu
-hold off on antibiotics for now
-IVF x 1 L given
Essential HTN
-VAT WASHER Nebivolol
DVT PPx Eliquis
DNR - discussed on admission
will dc now, cleared by cardio to dc
see dictated note
Anticipated Discharge: Today
Subjective/Interval History
-
Date of Service: May 15, 2025
Anxiously awaiting discharge
Objective Data
-
Labs:
Laboratory Results
05/15/25
06:00
WBC Pending
Hgb Pending
Hct Pending
Plt Count Pending
Sodium Cancelled
Potassium Cancelled
Chloride Cancelled
Carbon Dioxide Cancelled
BUN Cancelled
Creatinine Cancelled
Glucose Cancelled
Calcium Cancelled
Vital Signs:
Vital Signs
Temp Pulse Resp BP Pulse Ox
99.0 F 104 24 121/93 97
05/15/25 15:38 05/15/25 09:00 05/15/25 09:00 05/15/25 08:18 05/15/25 09:41
Review of Systems
-
History Source: Patient, Physician (Dr. Pratt) and Coordinated Provider
Constitutional: Denies Fever
EENT: Reports No Symptoms Reported
Respiratory: Reports No Symptoms; Denies Cough or Trouble Breathing
Cardiac: Reports No Symptoms
Abdomen/GI: Reports No Symptoms
Genitourinary: Reports No Symptoms
Neuro: Reports No Symptoms
Physical Exam
-
General: Well Developed, Well Nourished and No Apparent Distress
HEENT: Normocephalic, Atraumatic and Moist Mucous Membranes
Respiratory: Clear to Auscultation; Negative Wheezes, Rales or Rhonchi
Cardiac: S1/S2 and Irregular Rhythm
GI: Soft, Nontender and Nondistended
Musculoskeletal: No Clubbing, No Cyanosis and No Edema
Neuro: Awake, Alert and Oriented
--- NOTE | 2025-05-15 16:36 | W.DS.TRANS ---
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
-
Discharge Instructions:
Discharge Diagnosis/Procedures Atrial Flutter
Diet Regular
Activity No strenuous activity
Driving Restrictions Not until seen by your Dr
Bathing Restrictions None
Instructions:
Stand-Alone Forms:
Changes to Home Medications: Yes
Discharge Medications:
DC Medications w/original date entered in [email or web address]
nebivolol 2.5 mg tablet 2.5 mg PO DAILY Blood Pressure 05/14/25
zolmitriptan 5 mg disintegrating tablet 0 mg PO .COMPLEX migraine 05/14/25
apixaban 5 mg tablet (Eliquis) 5 mg PO BID Blood clot prevention/tx #60 tabs 05/15/25
diltiazem HCl 120 mg capsule,extended release 24 hr (Cardizem CD) 120 mg PO DAILY Arrhythmia #90 caps 05/15/25
Home Medication Changes
Cardizem and Eliquis added
Pending Results: Yes
Additional Pending Results:
PTH level
--- NOTE | 2025-05-15 17:55 | PTCARENOTE ---
pt discharged home. instructions reviewed iv removed. pt drove herself home/ discussed with Dr Rollins . stated pt ok to drive home and short distances but not long ( [place]
== END 2025-05-15 18:08 | disposition home or self-care (01) | DRG 310 ==
LOC: IMU 18:08
PROVIDERS: Emergency Medicine; Physician Assistant Medical; ADMITTING PHYSICIAN Student in an Organized Health Care Education/Training Program; ATTENDING PHYSICIAN Internal Medicine; EMERGENCY PHYSICIAN Emergency Medicine; FAMILY PHYSICIAN Family Medicine; OTHER PHYSICIAN Internal Medicine Cardiovascular Disease
DX: I48.3 Typical atrial flutter (principal); I10 Essential (primary) hypertension; I48.91 Unspecified atrial fibrillation; Z53.20 Procedure and treatment not carried out because of patient's decision for unspecified reasons; Z79.899 Other long term (current) drug therapy
CPT/HCPCS: 71046; 80053; 83735; 84443; 84484; 85025; 85730; 87502; 93005; 93306; 96374; 96376; 99291

== ENCOUNTER 2025-07-31 12:31 | Inpatient (IN) | payer MEDICARE, OTHER, SELFPAY ==
[2025-07-31] VITALS (13 sets, daily range): BP systolic 94–125; BP diastolic 68–104; BMI 23.6
--- NOTE | 2025-07-31 10:54 | ITS.CL.CARDI ---
Hammer Driver - Cardioversion
Cardioversion
Procedure Report:
Procedure: Direct current electrical cardioversion
Pre-operative diagnosis: Persistent atrial fibrillation
Post-operative diagnosis: Persistent atrial fibrillation status post DC cardioversion to sinus rhythm
Anesthesia: MAC
Attending Physician: Chon José MD
Procedure Description: The patient was brought to the electrophysiology laboratory in the fasting state. Adherence to anticoagulation regimen was confirmed. Informed consent was obtained from the patient prior to the start of the procedure.
Electrodes were placed on the patient and connected to an external defibrillator. Monitoring of blood pressure, ECG tracings, and pulse oximetry was initiated. The pads were applied to the patient in the anterior and posterior positions. The patient
was sedated by the anesthesiologist. 200, 250 and subsequent 360 joule biphasic synchronized shocks were delivered to the patient under MAC anesthesia. Sinus rhythm was successfully restored. The patient recovered uneventfully from MAC anesthesia.
There were no immediate post-procedure complications. The patient left the lab in good condition. The attending physician was present throughout the entire procedure.
Impression: Successful direct current cardioversion with congregation of sinus rhythm after 200, 250 and subsequent 360 joule biphasic synchronized shocks.
[2025-07-31] MEDS: LOPRESSOR 2.5 MG IV (11:49)
[2025-07-31] MEDS: TOPROL XL 25 MG PO (11:55)
--- NOTE | 2025-07-31 12:47 | W.PN.CARDCBS ---
Addendum entered and electronically signed by Chon José MD 07/31/25 15:10:
I saw and examined the patient.
The Checker Product Design's note was reviewed and I agree with the note.
Comment: Briefly, 70-year-old woman past medical history of atrial fibrillation/atrial flutter who presented for direct-current cardioversion earlier today
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
I engaged electrophysiology regarding this arrhythmia and the best strategy for treatment going forward. During our bedside evaluation patient developed significant sinus pause.
Plan is for admission to the IVU with close telemetry monitoring
External cardioverter/defibrillator pads in place
Start oral metoprolol and amiodarone for treatment of tachyarrhythmia
If she continues to have significant pauses will need to consider permanent pacemaker implant
Xarelto for risk reduction of cardioembolic stroke
Reviewed with patient and her son-in-law at bedside
Discussed with electrophysiology and nursing
Original Note:
Today's Communication / Plan
-
amiodarone 200mg BID
if continues with symptomatic conversion pauses, will need PPM placement
NPO for now
Impression / Plan
-
Primary Whale Trainer: Dr. José
Assessment:
Persistent atrial fibrillation
Typical atrial flutter
Chronic OAC with xarelto
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
HTN
Mild valvular heart disease
ECHO 05/15/25: EF 50%, mild concentric LVH, mild to moderate MR, mild to moderate AR, moderate TR, PAP 20 to 25 mmHg
Plan:
- Patient with persistent atrial fibrillation as well as history of typical atrial flutter who presented for elective outpatient cardioversion today. Cardioversion was successful, however she subsequently developed AVNRT with RVR. Patient was
given adenosine and had a conversion pause of approximately 8 seconds. She was then given atropine and converted back to AVNRT. Since then she has had several conversion pauses and continues to go in and out of AVNRT. She is symptomatic.
- As presently in sinus rhythm/sinus bradycardia, we will start amiodarone 200 mg p.o. twice daily and follow rhythm
- Hopefully if amiodarone works in maintaining sinus rhythm, patient will not have pauses and therefore can avoid pacemaker placement
- If continues with pauses, we did discuss indication for pacemaker. N.p.o. for now in case pacemaker would be urgently required
- Recent echo with results as above
- Discussed with nursing
- Discussed with patient and son at bedside
Progress Note - Whale Trainer
Subjective
Date of Service: July 31, 2025
did not feel afib. is symptomatic with pauses
Objective
Vital Signs and I&O:
Vital Signs
Pulse Resp BP Pulse Ox
138 16 132/92 100
07/31/25 11:55 07/31/25 12:39 07/31/25 11:55 07/31/25 12:39
Vital Signs
Pulse Resp BP Pulse Ox
138 16 132/92 100
07/31/25 11:55 07/31/25 12:39 07/31/25 11:55 07/31/25 12:39
Physical Exam
Physical Exam
GEN: No distress, awake, alert, oriented x3
HEENT: supple, anicteric, mmm, eomi
LUNGS: CTA B/L, no wheezes/rales
CV: Reg and tachy, S1/S2, 1/6 syst LSB
ABD: soft, BS+, NT/ND
EXT: No cyanosis, clubbing, edema
NEURO: Gross non-focal
SKIN: Warm, pink, dry. No rash
[2025-07-31 13:07] LABS: Hematocrit 41.9 % (37.0-47.0); Hemoglobin 13.9 g/dL (12.0-16.0); Mean Corp Hgb Conc. 33.2 g/dL (33.0-37.0); Mean Corpuscular Volume 94.2 fL (81.0-99.0); Nucleated Red Blood Cells % 0 %; Platelet Count 158 10^3/uL (130-400); Red Cell Dist. Width 13.8 % (11.5-14.5)
[2025-07-31] MEDS: PACERONE 200 MG PO ×2 (13:08→19:41)
[2025-07-31 13:30] LABS: ALT (SGPT) 17 U/L (0-35); AST (SGOT) 19 U/L (14-36); Albumin 4.1 g/dl (3.5-5.0); Alkaline Phosphatase 53 U/L (38-126); Blood Urea Nitrogen 13 mg/dl (7-17); Calcium 10.2 mg/dl (8.4-10.2); Carbon Dioxide 29 mmol/L (22-30); Chloride 108 mmol/L (98-107); Estimated Creatinine Clearance 56 ml/min; Glucose 98 mg/dl (70-99); Magnesium 1.8 mg/dl (1.6-2.3); Potassium 4.8 mmol/L (3.5-5.1); Sodium 140 mmol/L (135-145); Total Protein 6.4 g/dl (6.3-8.2); eGFR > 60.00
--- NOTE | 2025-07-31 13:30 | PTCARENOTE ---
Rec'd pt post CV. Pt flipping in and out of SVT 140s and SB 40-50s. Pt w/ multiple 5-7 second conversion pauses. Tele strips in chart. Pt symptomatic w/ pauses. Pt reports she 'feels like she is going to pass out.' Pt stays awake and alert during
pauses. Dr. Quick, Dr. Prtat, Marry Hayden PA aware. 200mg PO amio administered and ok to give per Dr. Pratt. See MAR. Pt remains NPO for possible PPM today. Currently in bed; call jono w/in reach.
--- NOTE | 2025-07-31 13:36 | W.PN.UPDATE ---
Update Note
Progress Note Update
Dr. José brought me to the holding area after the patient cardioverted from atrial fibrillation briefly into sinus rhythm and then went into short RP tachycardia 140 bpm with VA time less than 60 ms. Tachycardia initiates with APD's and
couplets and then the patient had a approximately 10-second postconversion pause in my presence associated with loss of consciousness briefly. Atropine was given 0.5 mg with improvement in sinus node function and 2.5 mg of IV metoprolol and 25 mg
of p.o. metoprolol were given for SVT suppression. While she has been on the floor she has had multiple 5 to 7-second postconversion pauses and we gave amiodarone 200 mg p.o. in addition to the prior medications as above. When she is in sinus she
has heart rates in the 40s to 50s and is hemodynamically stable. She tolerates the SVT relatively well. She does not give a history of SVT prior to her atrial fibrillation. When her atrial rates were rapid ejection fraction has been as low as 40%
although she has a normal ejection fraction on most recent echocardiogram.
I just met with the patient and discussed dual-chamber pacemaker implantation via the left deltopectoral groove. Discussed 1000 risk of LA stroke as well as a 1% risk of pneumothorax tamponade infection lead dislodgment or bleeding.
Alternative is observation and SVT suppression although I suspect metoprolol and/or amiodarone will worsen her postconversion pauses and as such I have left her on bedrest. I took time to answer all questions as well as discussion that we would
wait at least 3 months until ablation therapy for atrial fibrillation and AV duc reentry would be considered. I reviewed all available tracings and they appear to be atrial fibrillation or organized atrial fibrillation. Would consider in 3 to 6
months after pacemaker implantation and medication therapy ablation for A-fib and slow pathway modification.
She also was just cardioverted from persistent A-fib so we will have to minimize time that she is off of oral anticoagulation. Last dose of Xarelto was last evening and likely would only hold today and resume tomorrow.
--- NOTE | 2025-07-31 14:22 | CM ---
Reviewed chart. Met with Mrs. Islas to review discharge plans. She states prior to admission she resides with her significant other in a two story home with seven steps to enter. She states she has to go a up full flight of steps to get to
bedroom/full bathroom. She states she does not have a bathroom on the first floor. She states prior to admission she was independent with ambulation and adls. She states she does not have any DME in the home. She states she does not have a
prescription plan and uses [facility]. She states she has the [employer] Patient assistance Application for [employer] to see if she will qualify for their program. She states she was denied [employer] Patient Assistance Program. Medical
work-up in progress. The discharge plan is to return home with her significant other when medically stable.
--- NOTE | 2025-07-31 14:33 | PTCARENOTE ---
Pt has decided to give consent for PPM today. Dr. Quick and Catracho PA made aware. Pt added on to schedule. Remains NPO. CHG cloth wipes provided to chest.
--- NOTE | 2025-07-31 16:32 | ITS.CL.PACE ---
Logistics Planning Manager - Pacemaker Implant
Pacemaker Implant
Procedure Report:
Date of Procedure: 07/31/2025
Patient : 1955
Procedure: Pacemaker Implantation.
Indication: Post cardioversion for atrial fibrillation the patient had incessant short RP tachycardia 140 bpm with postconversion pauses up to 12 seconds which I witnessed associated with loss of consciousness. Attempts at suppression of
tachycardia with IV metoprolol, p.o. metoprolol, and p.o. amiodarone were unsuccessful with less arrhythmia burden but ongoing and continued 6 to 7-second pauses with near syncope. Presents for symptomatic tachybradycardia syndrome.
Implants:
Pulse Generator: Grid Mobile; Model# W1 DR 01; SN: [id number]
RA Lead: Medtronic; Model# 4574; SN: BBD [id number]
RV Lead: Medtronic; Model# 4074; SN: [id number]
Technique: A time out was performed. The procedure site was identified. The patient was anesthetized by the anesthesia service. Preoperative sedation was administered. The patient was prepped and draped in the usual fashion. Local anesthetic was
applied to the left prepectoral subcutaneous tissue. A 3 inch incision was made 2.5 inches below the left clavicle. A subcutaneous pocket was created with blunt and sharp dissection and hemostasis controlled with Bovie cautery. The left axillary
vein was accessed within the pocket without difficulty. Hemostasis was excellent. The leads were introduced with 7 Fr hemostatic peel away introducer sheaths. The ventricular lead was placed at the right ventricular apex. The atrial lead was placed
in the right atrial appendage. 10 volt pacing did not capture the diaphragm. The leads were secured to the pectoralis muscle and fascia. The leads were appropriately attached to the device. The pocket was irrigated with antibiotic solution. The
device and leads were placed in the pocket. The incision was closed in three layers with absorbable suture. The estimated blood loss was minimal. There were no complications.��
During short RP tachycardia for 20 ms we first measured the VA time with leads in the RV apex and the right atrial appendage. VA time of 68 ms was noted but with the lead in the right atrial appendage I suspect if there was recording from the AV
node or near the AV node that the VA time would be less than 60 ms. We then performed ventricular overdrive pacing at 400 ms which reliably terminated the tachycardia favoring AV duc reentry as the mechanism. The patient also had spontaneous 3-4
beats of atrial tachycardia which initiated the patient sustained tachycardia further supporting initiation by APD's couplets and triplets into AV duc reentry tachycardia. We did give 2.5 mg of IV metoprolol intraoperatively which diminish the
burden of tachyarrhythmia and pacing in the atrium at 70 bpm did suppress tachycardia reliably.
Pulsed fluoroscopy 2.7 minutes and 5.22 mGy
Lead Analysis:
RA lead: P: 2.5 mV; Threshold: 0.4 V @ 0.5��ms; Impedance: 722 ohms.
RV lead: R: 4.0 mV; Threshold: 0.4 V @ 0.5��ms; Impedance: 855 ohms.
Final Programming: AAIR�DDDR 70 to 130 bpm
�
Conclusion: Uncomplicated Medtronic pacemaker implant.
Recommendation: Routine post pacemaker care. She has sick sinus syndrome associated with greater than 10-second pauses and syncope. Now with pacing we can increase medication therapy for her AV duc reentry tachycardia as well as persistent
atrial fibrillation which in the past has had elevated rates and mild LV dysfunction. Initiating metoprolol and amiodarone and given recent cardioversion I want to resume her oriented coagulation as soon as possible so will resume Xarelto tomorrow
in the early afternoon as we typically would withhold on heparin for at least 24 hours anyway.
With regards to her long-term arrhythmia plan I discussed with patient that she will need the leads to healing for at least 3 months and to consider PVI plus slow pathway modification in 3 to 6 months. We would do that on uninterrupted oral
anticoagulation and we would withdraw amiodarone 1 to 2 weeks prior to ablation procedure. She is willing to follow-up with us to discuss this plan further down the line. Continue sling chest x-ray and device precautions.
[2025-07-31] MEDS: TYLENOL 650 MG PO (19:41)
[2025-07-31] MEDS: ANCEF 5 IV (21:44)
[2025-08-01] VITALS (9 sets, daily range): BP systolic 116–134; BP diastolic 79–108
[2025-08-01] MEDS: NON-FORMULARY ITEM 5 MG PO (00:15)
--- NOTE | 2025-08-01 03:08 | PTCARENOTE ---
Pt continues to have unsustained tachycardia, flipping back to A pacing. BP wnl. Pt asymptomatic. @ 0200 tachycardia persisted for 45 minutes. Pt sleeping, BP wnl. Loulou Baldwin notified. No new orders. Pt currently A paced hr 70.
[2025-08-01] MEDS: TYLENOL 650 MG PO ×3 (04:50→21:15)
[2025-08-01 05:41] LABS: Hematocrit 32.9 % (37.0-47.0); Hemoglobin 11.0 g/dL (12.0-16.0); Mean Corp Hgb Conc. 33.4 g/dL (33.0-37.0); Mean Corpuscular Volume 94.8 fL (81.0-99.0); Platelet Count 139 10^3/uL (130-400); Red Cell Dist. Width 13.9 % (11.5-14.5)
[2025-08-01] MEDS: FLUSH (NSS) 1 FLUSH IV (05:43)
[2025-08-01] MEDS: ANCEF 5 IV (05:48)
[2025-08-01 06:14] LABS: Blood Urea Nitrogen 8 mg/dl (7-17); Calcium 8.1 mg/dl (8.4-10.2); Carbon Dioxide 22 mmol/L (22-30); Chloride 116 mmol/L (98-107); Estimated Creatinine Clearance 65 ml/min; Glucose 74 mg/dl (70-99); Magnesium 1.4 mg/dl (1.6-2.3); Potassium 3.5 mmol/L (3.5-5.1); Sodium 141 mmol/L (135-145); eGFR > 60.00
[2025-08-01] MEDS: TOPROL XL 25 MG PO ×2 (08:17→11:00)
[2025-08-01] MEDS: PACERONE 200 MG PO ×2 (08:18→20:03)
[2025-08-01] MEDS: KCL 20 MEQ PO (10:01)
[2025-08-01] MEDS: MAGNESIUM SULFATE 50 IV (10:01)
--- NOTE | 2025-08-01 10:27 | CM ---
Reviewed chart. Met with Mrs. Islas to review discharge plans. She states she feel washed out and tired. Prior to admission she resides with her significant other in a two story home with seven steps to enter. She has to go a up full flight
of steps to get to bedroom/full bathroom. She does not have a bathroom on the first floor. She states prior to admission she was independent with ambulation and adls. She does not have any DME in the home. She does not have a prescription plan and
uses [facility]. Medical work-up in progress. The discharge plan is to return home with her significant other when medically stable.
--- NOTE | 2025-08-01 10:52 | W.PN.CARDCBS ---
Addendum entered and electronically signed by Chon José MD 08/01/25 11:38:
I saw and examined the patient.
The Cabana Attendant's note was reviewed and I agree with the note.
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
with conversion pauses concerning for tachybradycardia syndrome. She was admitted to the IVU for monitoring and plan was for addition of amiodarone to help maintain sinus rhythm. Unfortunately she continued to have symptomatic conversion pauses
and underwent permanent pacemaker implant 07/31/2025.
Overnight telemetry reviewed. Predominantly atrial paced rhythm with intermittent episodes of AVNRT. Of note she seems to be asymptomatic with this.
Increase metoprolol dose to 50 mg twice daily
Continue amiodarone 200 mg twice daily
Replete electrolytes
Follow on telemetry today. If AVNRT is better controlled through this afternoon I am okay with discharge later today. Patient is anxious to leave the hospital.
Outpatient follow-up has been arranged
Original Note:
Today's Communication / Plan
-
continue amio
increase toprol
xarelto to resume tonight
possible DC later today vs AM
OP EP follow up arranged to discuss ablation.
Impression / Plan
-
Primary Fancy Stitcher: Dr. José
Assessment:
Persistent atrial fibrillation
Typical atrial flutter
Chronic OAC with xarelto
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
s/p Medtronic PPM placement 07/31/25
HTN
Mild valvular heart disease
ECHO 05/15/25: EF 50%, mild concentric LVH, mild to moderate MR, mild to moderate AR, moderate TR, PAP 20 to 25 mmHg
Plan:
- Patient with persistent atrial fibrillation as well as history of typical atrial flutter who presented for elective outpatient cardioversion 07/31. Cardioversion was initially successful, however she subsequently developed AVNRT with RVR. Patient
was given adenosine and had a conversion pause of approximately 8 seconds. She was then given atropine and converted back to AVNRT. Then continued to have paroxysmal AVNRT with conversion pauses and was symptomatic.
- underwent Medtronic PPM placement 07/31/25
- reports pain and itching surrounding dressing post PPM. will give dose of benadryl. we discussed that dressing should remain on until wound check appt next week
- we discussed activity restrictions and limitations post PPM in detail
- on tele no further pauses noted however continues with paroxysms of avnrt. continue amiodarone 200mg BID and will increase toprol dose in attempt to reduce AVNRT burden.
- xarelto to resume tonight
- OP EP follow up arranged to discuss ablation of atrial arrhythmias - she is requesting Dr. Quick ONLY.
- ambulate
- replete K/mag
- possible DC later today vs in AM
- Discussed with nursing
Progress Note - Fancy Stitcher
Subjective
Date of Service: August 01, 2025
reports some post op pain and itching surrounding dressing
Objective
Labs:
08/01/25 04:46
08/01/25 04:46
Labs
Hgb 11.0 g/dL (12.0-16.0) L D 08/01/25 04:46
Hct 32.9 % (37.0-47.0) L 08/01/25 04:46
Plt Count 139 10^3/uL (130-400) 08/01/25 04:46
Sodium 141 mmol/L (135-145) 08/01/25 04:46
Potassium 3.5 mmol/L (3.5-5.1) D 08/01/25 04:46
BUN 8 mg/dl (7-17) 08/01/25 04:46
Creatinine 0.6 mg/dL (0.6-1.0) 08/01/25 04:46
Glucose 74 mg/dl (70-99) 08/01/25 04:46
Vital Signs and I&O:
Vital Signs
Temp Pulse Resp BP Pulse Ox
98.8 F 70 20 129/86 96
08/01/25 07:31 08/01/25 08:00 08/01/25 07:31 08/01/25 07:31 08/01/25 07:31
Vital Signs
Temp Pulse Resp BP Pulse Ox
98.8 F 70 20 129/86 96
08/01/25 07:31 08/01/25 08:00 08/01/25 07:31 08/01/25 07:31 08/01/25 07:31
Intake & Output
07/30/25 07/31/25 08/01/25 08/02/25
07:59 07:59 07:59 07:59
Intake Total 1480 / 1480
Balance 1480 / 1480
Physical Exam
Physical Exam
GEN: No distress, awake, alert, oriented x3
HEENT: supple, anicteric, mmm, eomi
LUNGS: CTA B/L, no wheezes/rales
CV: Reg, S1/S2, no murmur
ABD: soft, BS+, NT/ND
EXT: No cyanosis, clubbing, edema
NEURO: Gross non-focal
SKIN: Warm, pink, dry. L chest site with aquacel dressing c/d/i, no rashes appreciated.
[2025-08-01] MEDS: XARELTO 20 MG PO (17:03)
[2025-08-01] MEDS: ZYRTEC 10 MG PO (20:03)
[2025-08-01] MEDS: TOPROL XL 50 MG PO (20:08)
[2025-08-01] MEDS: BENADRYL 25 MG PO (21:37)
[2025-08-02 03:25] VITALS: BP 132/99
--- NOTE | 2025-08-02 03:27 | PTCARENOTE ---
Pt A paced on monitor, VSS. Pt had a few episodes of A-tach with HR 122-126BPM. Pt asymptomatic. Tylenol PRN given for left chest surgery site pain. Pt independent in the room. Call jono w/in reach.
[2025-08-02] MEDS: BENADRYL 25 MG PO (05:31)
[2025-08-02] MEDS: TYLENOL 650 MG PO (05:31)
--- NOTE | 2025-08-02 06:29 | W.PN.CARDCBS ---
Addendum entered and electronically signed by Betty Rice DO 08/02/25 10:55:
I saw and examined the patient.
The Educational Fundraising Director's note was reviewed and I agree with the note.
Comment: Patient was seen and examined. She is anxious for discharge and all questions were answered including activity restrictions and cardiac follow-up. Patient is reporting itching around pacemaker bandage; no identifiable rash
General: No acute distress, AAOX3
Neck: Negative JVD
Heart: Regular, Negative S3 positive S1/S2, Negative S4, No murmur. Pacemaker site intact.
Lungs: CTA b/l, negative wheezes/rales/rhonchi
Abd: Positive BS, NT/ND, neg rebound/rigidity/guarding
Ext: No edema
Neuro: nonfocal
Persistent atrial fibrillation, AVNRT with conversion pauses up to 8 seconds now status post Medtronic pacemaker 07/31/2025
- Stable overnight following pacemaker with no further tachyarrhythmia.
- Activity restrictions reviewed.
- Continue medical therapy including amiodarone 200 mg daily. She will also continue new Toprol XL 50 mg twice daily (Nebivolol discontinued).
- She will continue Xarelto 20 mg once daily.
-Pertinent labs this morning: Sodium 138, potassium 4.9, BUN/creatinine 9/0.7. Magnesium 1.9.
-Outpatient cardiac follow-up with EP arranged to discuss possible AVNRT/A-fib ablation.
Original Note:
Today's Communication / Plan
-
Likely discharge to home later today pending labs that I ordered for this morning to recheck potassium and magnesium
Patient has received almost 1 g of amiodarone load and will continue to load at home for the next month and then reduce to once daily thereafter
Cardiac medications E scribed by cardiology for continuity at discharge
Impression / Plan
-
PCP: Dr. Wero Osborn
Primary Furniture Stainer: Dr. José
Assessment:
Admitted following attempted CV 07/31/25
s/p CV for persistent Afib
200, 250 and then 360 J shock for nondenominational of SR
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
Conversion pauses up to 8 seconds 07/31/25
s/p Medtronic DC PPM 07/31/25
Persistent atrial fibrillation
Paroxysmal typical atrial flutter
Chronic OAC with Xarelto
HTN
Mild valvular heart disease
Hypokalemia
Hypomagnesemia
ECHO 05/15/25: EF 50%, mild concentric LVH, mild to moderate MR, mild to moderate AR, moderate TR, PAP 20 to 25 mmHg
Plan:
-Patient with persistent atrial fibrillation as well as history of typical atrial flutter who presented for elective outpatient CV 07/31/25. CV was initially successful following 3 shocks, however she subsequently developed AVNRT with RVR and was
given adenosine and had a conversion pause of approximately 8 seconds. She was then given atropine and converted back to AVNRT. Then continued to have symptomatic paroxysmal AVNRT with conversion pauses prompting PPM.
-Patient had PPM 07/31/25, no hematoma and minimal ecchymosis.
-Activity limitations plus limb and driving restrictions reviewed with patient.
-Tele reviewed by me 08/02/25 and patient continues with paroxysms of AVNRT, but no longer experiencing pauses. Patient seems to be asymptomatic with AVNRT.
-Cont loading with amiodarone 200 mg BID and patient has received 800 mg as of 08/02/25 AM
-ECG from 08/01/2025 was reviewed by me on 08/02/2025 and the QTc was 425 mL
-Outpatient dose of nebivolol was changed to Toprol XL 50 mg BID
-Patient requested Dr. Quick for EP and is scheduled to see him 09/03/25 to discuss possible ablation
-Potassium and magnesium supplemented on 08/01/2025, recheck labs on 08/02/2025 AM, ordered by me
-Anticipate discharge to home on 08/02/2025
Progress Note - Furniture Stainer
Subjective
Date of Service: August 02, 2025
Sleeping soundly, no reports of pain
Objective
Labs:
08/01/25 04:46
08/01/25 04:46
Labs
Hgb 11.0 g/dL (12.0-16.0) L D 08/01/25 04:46
Hct 32.9 % (37.0-47.0) L 08/01/25 04:46
Plt Count 139 10^3/uL (130-400) 08/01/25 04:46
Sodium 141 mmol/L (135-145) 08/01/25 04:46
Potassium 3.5 mmol/L (3.5-5.1) D 08/01/25 04:46
BUN 8 mg/dl (7-17) 08/01/25 04:46
Creatinine 0.6 mg/dL (0.6-1.0) 08/01/25 04:46
Glucose 74 mg/dl (70-99) 08/01/25 04:46
Vital Signs and I&O:
Vital Signs
Temp Pulse Resp BP Pulse Ox
98.4 F 71 16 132/99 96
08/02/25 03:23 08/02/25 06:00 08/02/25 03:23 08/02/25 03:25 08/02/25 03:25
Vital Signs
Temp Pulse Resp BP Pulse Ox
98.4 F 71 16 132/99 96
08/02/25 03:23 08/02/25 06:00 08/02/25 03:23 08/02/25 03:25 08/02/25 03:25
Intake & Output
07/30/25 07/31/25 08/01/25 08/02/25
06:59 06:59 06:59 06:59
Intake Total 1480 / 1480 1250 / 1250
Balance 1480 / 1480 1250 / 1250
Physical Exam
Physical Exam
GEN: NAD.
LUNGS: RA. No wheeze
CV: A-paced rhythm on telemetry
EXT: No edema B/L
NEURO: Gross non-focal
SKIN: No rash
[2025-08-02 07:15] VITALS: BP 127/89
[2025-08-02 10:05] LABS: Blood Urea Nitrogen 9 mg/dl (7-17); Calcium 10.5 mg/dl (8.4-10.2); Carbon Dioxide 31 mmol/L (22-30); Chloride 105 mmol/L (98-107); Estimated Creatinine Clearance 56 ml/min; Glucose 93 mg/dl (70-99); Magnesium 1.9 mg/dl (1.6-2.3); Potassium 4.9 mmol/L (3.5-5.1); Sodium 138 mmol/L (135-145); eGFR > 60.00
[2025-08-02] MEDS: ZYRTEC 10 MG PO (10:37)
[2025-08-02] MEDS: TOPROL XL 50 MG PO (10:38)
[2025-08-02 10:40] VITALS: BP 142/94
[2025-08-02] MEDS: PACERONE 200 MG PO (10:40)
--- NOTE | 2025-08-02 10:57 | PTCARENOTE ---
Pt is AOx3, no complaints of pain or discomfort. Independent OOB. A-paced on tele monitor, VSS. Plan for discharge later this AM. Call de la cruz within reach.
--- NOTE | 2025-08-02 11:22 | W.DS.TRANS ---
DC Summary - Wood Preparation Supervisor
-
Discharge Instructions:
Discharge Diagnosis/Procedures Atrial tachycardia post Cardioversion
Symptomatic conversion pauses post pacemaker
implant
Diet Low Sodium
Activity Other activity
Additional Activity see device sheet
Driving Restrictions No driving for 1 week
Bathing Restrictions OK to Shower
Instructions:
Stand-Alone Forms: DC Inst - Implanted Device
Changes to Home Medications: Yes
Discharge Medications:
DC Medications w/original date entered in [facility]
cetirizine 10 mg tablet (Zyrtec) 10 mg PO DAILY 07/31/25
rivaroxaban 20 mg tablet (Xarelto) 20 mg PO QPM 07/31/25
zolmitriptan 5 mg tablet 5 mg PO ONCE migraine 07/31/25
amiodarone 200 mg tablet 200 mg PO DAILY #30 tabs 08/01/25
amiodarone 200 mg tablet (Pacerone) 200 mg PO BID #60 tabs 08/01/25
metoprolol succinate 25 mg tablet,extended release 24 hr 50 mg (2 x 25 mg) PO BID #60 tabs 08/01/25
Home Medication Changes
Nebivolol changed to Toprol XL
New to amiodarone
Pending Results: No
[2025-08-02 11:35] VITALS: BP 160/117
[2025-08-02 11:37] VITALS: BP 143/100
[2025-08-02 11:39] VITALS: BP 157/112
== END 2025-08-02 12:00 | disposition home or self-care (01) | DRG 243 ==
LOC: IVU 12:31
PROVIDERS: Internal Medicine Cardiovascular Disease; Physician Assistant; Physician Assistant Medical; ADMITTING PHYSICIAN Internal Medicine Cardiovascular Disease; FAMILY PHYSICIAN Family Medicine
PROC: 02H63JZ Insertion of Pacemaker Lead into Right Atrium, Percutaneous Approach (ICD-10-PCS; 2025-07-31)
PROC: 02HK3JZ Insertion of Pacemaker Lead into Right Ventricle, Percutaneous Approach (ICD-10-PCS; 2025-07-31)
PROC: 0JH606Z Insertion of Pacemaker, Dual Chamber into Chest Subcutaneous Tissue and Fascia, Open Approach (ICD-10-PCS; 2025-07-31)
PROC: 5A2204Z Restoration of Cardiac Rhythm, Single (ICD-10-PCS; 2025-07-31)
DX: I49.5 Sick sinus syndrome (principal); I47.19 Other supraventricular tachycardia; I48.19 Other persistent atrial fibrillation; I48.3 Typical atrial flutter; Z79.899 Other long term (current) drug therapy
CPT/HCPCS: 33208; 71045; 80048; 80053; 83735; 85025; 85027; 92960; 93005; C1785; C1898; Q9967

== ENCOUNTER 2025-08-11 19:32 | Emergency (ER) | payer MEDICARE, OTHER, SELFPAY ==
[2025-08-11 19:40] VITALS: BP 155/108
[2025-08-11 20:05] LABS: Hematocrit 44.4 % (37.0-47.0); Hemoglobin 14.7 g/dL (12.0-16.0); Mean Corp Hgb Conc. 33.1 g/dL (33.0-37.0); Mean Corpuscular Volume 91.0 fL (81.0-99.0); Nucleated Red Blood Cells % 0 %; Platelet Count 242 10^3/uL (130-400); Red Cell Dist. Width 13.2 % (11.5-14.5)
[2025-08-11 20:23] LABS: ALT (SGPT) 19 U/L (0-35); AST (SGOT) 23 U/L (14-36); Albumin 4.6 g/dl (3.5-5.0); Alkaline Phosphatase 69 U/L (38-126); Blood Urea Nitrogen 17 mg/dl (7-17); Calcium 11.0 mg/dl (8.4-10.2); Carbon Dioxide 32 mmol/L (22-30); Chloride 102 mmol/L (98-107); Glucose 138 mg/dl (70-99); Potassium 4.5 mmol/L (3.5-5.1); Sodium 137 mmol/L (135-145); Total Protein 7.3 g/dl (6.3-8.2); eGFR > 60.00
[2025-08-11 22:42] VITALS: BP 141/87
[2025-08-11 23:00] VITALS: BP 144/91
--- NOTE | 2025-08-11 23:17 | ED.GENMED ---
History of Present Illness
<Augusta Miller PA-C - Last Filed: 08/12/25 06:09>
General
Chief Complaint: Headache
Source: patient
Exam Limitations: none
Time Seen by Provider: 08/11/25 23:16
Nursing documentation reviewed up to this point in time: agreed with
History of Present Illness
History of Present Illness:
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 She
reports that the headache started after she had her pacemaker placed. She describes the pain as severe and across her forehead behind her eyes and extending to the back of her neck. She feels that her neck feels stiff. Despite being a chronic
migraine suffer, she states that this headache is distinct from her typical migraines as her usual migraines get better with medications however she cannot take her typical migraine medication as it interacts with her potential pacemaker function.
She reports not experiencing a migraine of this nature before with her typical migraines usually resolving within 2 hours after treatment. The headache is constant and worsened by light. She denies any recent headaches or falls. The patient
experiences associated symptoms of occasional dizziness. She denies chest pain, shortness of breath, lightheadedness, syncopal episodes. She did not take her Zomig as it may cause vaso constriction. She denies any fevers or chills. She denies
any recent head or neck trauma. She denies any numbness or tingling one-sided body versus other.
Past History
<Augusta Miller PA-C - Last Filed: 08/12/25 06:09>
Past History
ED Past Medical History: HTN and Other (Migraines, Lyme disease, endometriosis)
ED Past Surgical History: Gynecological (Endometriosis) and Other
Social History
Tobacco: Non-smoker
Alcohol: None
Drug: None
Review of Systems
<Augusta Miller PA-C - Last Filed: 08/12/25 06:09>
Review of Systems
All Other Systems: ROS reviewed and negative except as documented in HPI and ROS
Phy Exam
<Augusta Miller PA-C - Last Filed: 08/12/25 06:09>
Physical Exam
Physical Exam:
General: Patient is well appearing and in no acute distress; non-toxic
Skin: Warm and dry, no rashes or lesions
Head: Normocephalic, atraumatic
Eyes: Sclera non-icteric. EOMs intact.
Neck: Full range of motion, neck supple, no tenderness upon palpation
Cardiac: Regular rate and rhythm, no murmurs
Peripheral Vascular: No lower extremity swelling or edema
Pulm: Normal respiratory effort, no wheezes, rales, rhonchi
Neuro: CN II-XII intact, no focal neurologic deficits. Normal finger to you, heel to nose testing. No nuchal rigidity. Negative Kernig and Bruzinski sign.
Psychiatric: Appropriate mood and affect.
Course
<Augusta Miller PA-C - Last Filed: 08/12/25 06:09>
Orders/Labs/Results
Orders:
Orders
08/11/25 19:50
Complete Blood Count/With Diff Urgent
Comprehensive Metabolic Panel Urgent
08/11/25 23:20
Interrogate Pacemaker- Treatment ONCE
08/12/25
CT Head & Neck Angio W/wo IV Urgent
Reason For Exam: headache and neck pain x 11 days
08/12/25 01:49
Diphenhydramine [Benadryl] 12.5 mg IV NOW STA
Metoclopramide [Reglan] 10 mg IV NOW STA
08/12/25 01:50
0.9% Sodium Chloride 500 ml [Nss] 500 ml IV BOLUS
08/12/25 01:53
Ketorolac [Toradol] 15 mg IV NOW STA
08/12/25 02:47
Dexamethasone Sod Phosphate [Decadron] 10 mg IV NOW STA
08/12/25 02:48
Acetaminophen [Tylenol] 1,000 mg PO NOW STA
08/12/25 05:45
Dexamethasone [Decadron] 10 mg PO NOW STA
Abnormal Lab Results
08/11/25
19:50
Carbon Dioxide 32 H mmol/L
(22-30)
Glucose 138 H mg/dl
(70-99)
Calcium 11.0 H mg/dl
(8.4-10.2)
08/11/25 19:50
08/11/25 19:50
Vital Signs
Initial and Last Documented VS:
Initial Vital Signs
Temp Pulse Resp BP Pulse Ox
98.5 F 79 18 155/108 99
08/11/25 19:40 08/11/25 19:40 08/11/25 19:40 08/11/25 19:40 08/11/25 19:40
Last Documented Vital Signs
Temp Pulse Resp BP Pulse Ox
98.9 F 72 18 158/94 97
08/12/25 05:57 08/12/25 05:57 08/12/25 05:57 08/12/25 05:57 08/12/25 05:57
<Nolan Ramey MD - Last Filed: 08/12/25 19:18>
Orders/Labs/Results
Orders:
Orders
08/11/25 19:50
Complete Blood Count/With Diff Urgent
Comprehensive Metabolic Panel Urgent
08/11/25 23:20
Interrogate Pacemaker- Treatment ONCE
08/12/25
CT Head & Neck Angio W/wo IV Urgent
Reason For Exam: headache and neck pain x 11 days
08/12/25 01:49
Diphenhydramine [Benadryl] 12.5 mg IV NOW STA
Metoclopramide [Reglan] 10 mg IV NOW STA
08/12/25 01:50
0.9% Sodium Chloride 500 ml [Nss] 500 ml IV BOLUS
08/12/25 01:53
Ketorolac [Toradol] 15 mg IV NOW STA
08/12/25 02:47
Dexamethasone Sod Phosphate [Decadron] 10 mg IV NOW STA
08/12/25 02:48
Acetaminophen [Tylenol] 1,000 mg PO NOW STA
08/12/25 05:45
Dexamethasone [Decadron] 10 mg PO NOW STA
Abnormal Lab Results
08/11/25
19:50
Carbon Dioxide 32 H mmol/L
(22-30)
Glucose 138 H mg/dl
(70-99)
Calcium 11.0 H mg/dl
(8.4-10.2)
08/11/25 19:50
08/11/25 19:50
Vital Signs
Initial and Last Documented VS:
Initial Vital Signs
Temp Pulse Resp BP Pulse Ox
98.5 F 79 18 155/108 99
08/11/25 19:40 08/11/25 19:40 08/11/25 19:40 08/11/25 19:40 08/11/25 19:40
Last Documented Vital Signs
Temp Pulse Resp BP Pulse Ox
98.9 F 72 18 158/94 97
08/12/25 05:57 08/12/25 05:57 08/12/25 05:57 08/12/25 05:57 08/12/25 05:57
Kimlt;Augusta Miller PA-C - Last Filed: 08/12/25 06:09>
MDM/Problems Addressed
Differential Diagnosis Includes:
Differentials include acute migraine attack, status migrainous, viral meningitis, postviral syndrome, occipital neuralgia
MDM/Problems Addressed:
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 She
reports that the headache started after she had her pacemaker placed. Patient did have upper respiratory viral symptoms at that time. She reports that she can no longer take her migraine medication because of her heart condition and she currently
does not have a rescue or preventative medication. Patient was given Toradol, Reglan, Benadryl with relief of symptoms. Patient was given a dose of Decadron as well for refractory migraine. Labs reviewed, CBC, CMP unremarkable. Considering
patient's neck pain, headache, intermittent dizziness she was sent for CTA which showed no evidence of vessel dissection, no evidence of acute intracranial abnormality. Suspect status migrainous versus postviral syndrome. Low suspicion for
meningitis. No indication for LP at this time. Did contact Dr. Rodríguez, neurologist on-call who recommended variety of preventative medications. I did offer these to patient however patient opts for a as needed medication instead. Will initiate
Nurte. I did recommend that patient establish care with a neurologist and see her primary for reassessment patient expressed understanding. Patient stable for discharge
Chronic conditions affecting care:
htn, migraine
<Augusta Miller PA-C - Last Filed: 08/12/25 06:09>
*Pulse Oximetry
SaO2: 100
Oxygen Mode of Delivery: Room air
Patient hypoxic: no
*Critical Care Note
Total Time (30-74mins, 75-104mins- exclusive of procedures): Not Applicable
Data Reviewed
Review of Other/Old Records Reveals: Records (Reviewed discharge summary from 08/02/2025)
Source: patient and records
Further Testing Considered But Not Given:
No abnormalities on pacemaker evaluation today
<Augusta Miller PA-C - Last Filed: 08/12/25 06:09>
Update Note
Update Note:
12:18-- i was notified by nursing staff that patient refused ecg
ED Attending Note
<Augusta Miller PA-C - Last Filed: 08/12/25 06:09>
-
Portions of this chart may have been created with voice recognition software.� Occasional wrong word or��sound alike� substitutions may have occurred due to the inherent limitations of voice recognition software.
<Nolan Ramey MD - Last Filed: 08/12/25 19:18>
ED Attending Note
Patient seen and examined by attending physician: Yes
ED Attending Note:
Patient with history of 'vascular migraine headache', presents to ED secondary to persistent headache over the past 2 weeks. Patient states that her headache started on the day when she had her pacemaker placed in the hospital. Prior to the
pacemaker placement, patient states that she was experiencing nasal congestion and cough. However, as she did not experience fever, procedure was completed, as planned. Patient was in the hospital for 2 more days, during which time patient did
experience continual headache, for which she was given Tylenol, as well as Zomig with mild improvement. Since then, patient has been using Zomig on multiple occasions at home, without improvement. Headache which was started on the left side of her
head, has become more diffuse, as well as neck pain. Denies fever or chills. Denies nausea or vomiting. Denies difficulty with speech or swallowing. Denies blurred vision. Denies loss of sensation or weakness. Patient spoke with her primary
care physician who advised patient come to ED for an evaluation.
Physical Exam
General: no apparent distress, not acutely ill. afebrile
Head: nc/at. eomi
Neck: supple. normal range of motion. negative Kernig's and Brudzinski sign.
Heart: s1/s2 regular rate and rhythm
Lungs: no acute respiratory distress. clear bilaterally
Abdomen: normal bowel sounds. not tender.
Neuro: alert and oriented x 3. no focal neurological deficits. normal speech.
Skin: no rash
Psychiatric: well kept. interactive and cooperative
Extremities: no edema. no calf tenderness.
Patient with an unremarkable workup in ED, including blood work and CT angiogram of head and neck. Otherwise, patient remains afebrile, hemodynamically stable, and neurologically intact on observation, without acute distress. Patient with likely
worsening headache, likely viral in nature versus chemical reaction, i.e. anesthesia during pacemaker placement, and extremely less likely meningitis, as patient's exam is quite benign. As such, after discussion with patient and on-call neurology,
Dr. Rodríguez, patient will be discharged home in stable condition with recommendation for medication as outpatient, along with PCP follow-up.
Discharge Plan
Departure
Patient Disposition: Home (Routine Discharge)
Date of Disposition: 08/12/25
Time of Disposition: 05:53
Patient with high blood pressure during this ER visit?: Yes
Condition: Good
Discharge Problem:
Migraine with status migrainosus
Instructions: Migraines (DC), BLOOD PRESSURE
Prescriptions:
New
Nurtec ODT 75 mg tablet,disintegrating
75 mg PO ONCE PRN (Reason: migraine) Qty: 30 0RF
No Action
cetirizine [Zyrtec] 10 mg Tablet
10 mg PO DAILY
Xarelto 20 mg Tablet
20 mg PO QPM
zolmitriptan 5 mg Tablet
5 mg PO ONCE
amiodarone [Pacerone] 200 mg Tablet
200 mg PO BID Qty: 60 0RF
Rx Instructions:
take 200mg twice daily for 4 weeks then decrease to 200mg daily! FILL FIRST
metoprolol succinate 25 mg Tablet Extended Release 24 Hr
50 mg PO BID Qty: 60 5RF
amiodarone 200 mg tablet
200 mg PO DAILY Qty: 30 3RF
Rx Instructions:
Please take 200mg twice daily for 30 days then decrease to 200mg daily! FILL SECOND
Referrals:
Ilsa Jones MD [Non-Admitting Privileges, Psychiatry] - Call in 1-3 days for appt
Wero Osborn, DO [Family Provider, [facility]]
Activity Restrictions/Additional Instructions:
Nurtec has been sent to your pharmacy. This is used for acute migraine attacks. You can take 1 tablet as a single dose early in the course of a migraine attack at the first sign of pain. You cannot take more than 1 dose in 24 hours.
I recommend establishing care with a neurologist. You can call the attached number to schedule an appointment.
As discussed, your CT scan of the head and neck was normal. No evidence of vessel dissection or other acute abnormality.
PLEASE RETURN TO ER SHOULD YOU DEVELOP CHEST PAIN SHORTNESS OF BREATH, INTRACTABLE NAUSEA OR VOMITING, VISUAL CHANGES, FEVERS, WEAKNESS IN ONE-SIDED BODY VERSUS OTHER, NUMBNESS OR TINGLING, OR ANY OTHER SIGNS OR SYMPTOMS WORRISOME TO YOU.
Interventions
Interventions:
*Risk Screen - Suicide Last Done: 08/11/25 23:38
*General Assessment Last Done: 08/11/25 23:37
*Neglect/Abuse Screening Last Done: 08/11/25 23:39
*ED- Fall Risk Assessment Last Done: 08/11/25 23:37
*ED COVID-19 Vaccine History Last Done: 08/11/25 23:39
*Nursing Disposition Last Done: 08/12/25 05:58
ED- Neurological Assessment Last Done: 08/11/25 23:35
Discharge Date and Time
Discharge Date/Time: 08/12/25 06:13
Print Language: ISRAELI
--- NOTE | 2025-08-12 00:15 | PTCARENOTE ---
patient refusing EKG and pacemaker interrogation due to feeling as if it not necessary since she just got it placed. provider notified.
[2025-08-12 02:12] VITALS: BP 159/97
[2025-08-12] MEDS: TORADOL 15 MG IV (02:13)
[2025-08-12] MEDS: BENADRYL 12.5 MG IV (02:14)
[2025-08-12] MEDS: REGLAN 10 MG IV (02:14)
[2025-08-12] MEDS: NSS 500 IV (02:15)
[2025-08-12] MEDS: TYLENOL 1000 MG PO (05:51)
[2025-08-12] MEDS: DECADRON 10 MG PO (05:51)
[2025-08-12 05:57] VITALS: BP 158/94
== END 2025-08-12 06:13 | disposition home or self-care (01) ==
LOC: EMR 19:32
PROVIDERS: Emergency Medicine; EMERGENCY PHYSICIAN Emergency Medicine; FAMILY PHYSICIAN Family Medicine
DX: G43.901 Migraine, unspecified, not intractable, with status migrainosus (principal); I10 Essential (primary) hypertension; I47.19 Other supraventricular tachycardia; Z95.0 Presence of cardiac pacemaker; Z79.01 Long term (current) use of anticoagulants
CPT/HCPCS: 99284; 96374; 96375 ×3; 96361; 93288; 70496; 70498; 80053; 85025; Q9967